=== PATIENT | male | born 2000 | race Caucasian/White ===

== ENCOUNTER 2019-02-12 14:00 | Emergency (ER) | payer SELFPAY ==
[~2019-02-12] VITALS: Ht 188 cm; Wt 65.8 kg
[~2019-02-12 14:00] MED LIST: ACET-789 PO
[2019-02-12] MEDS ORDERED: CYCLOBENZAPRINE 10 MG (FLEXERIL) TAB PO STA (14:44)
[2019-02-12] MEDS ORDERED: ACETAMINOPHEN 325 MG TABLET PO STA (14:44)
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
--- NOTE | 2019-02-12 15:16 | Diagnostic Imaging Report ---
PROCEDURE: CT head without contrast. TECHNIQUE: Multiple contiguous axial images were obtained through the brain without the use of intravenous contrast. Auto Exposure Controls were utilized during the CT exam to meet ALARA standards for radiation dose reduction. INDICATION: Headache for one week. COMPARISON: No prior studies are available for comparison. FINDINGS: Ventricles and sulci are within normal limits. No sulcal effacement or midline shift is seen. No acute intra-axial or extra-axial hemorrhage is detected. Cisterns are patent. Visualized paranasal sinuses are clear. IMPRESSION: Unremarkable noncontrast CT of the brain. Dictated by: Dictated on workstation # [id number]
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
[2019-02-12] MEDS ORDERED: CYCL10TA9 PO (15:23)
[2019-02-12] MEDS ORDERED: MECLIZINE 25 MG (ANTIVERT) TAB PO ONE (15:30)
[2019-02-12 15:38] VITALS: BP 132/92
--- OUTSIDE RECORDS SUMMARY | 2019-02-12 16:44 | XMS REPORT ---
Author CORNELIO Westbrook Organization [employer] Address Unknown Phone Unavailable Care Team Providers Care Aviation Project Manager Name Role Phone CORNELIO OCHOA CP Unavailable Allergies, Adverse Reactions, Alerts Substance Reaction Event Type N.K.D.A. Info Not Available Non Drug Allergy Problems Problem Type Condition Code Onset Dates Condition Status Problem Abdominal pain, epigastric 789.06 Active Problem Acute upper respiratory infections of unspecified site 465.9 Active Problem Abscess of penis N48.21 Active Assessment Abscess of penis N48.21 Active Problem Nausea with vomiting 787.01 Active Problem Streptococcal sore throat 034.0 Active Medications Medication Code System Code Instructions Start Date End Date Status Dosage Bactrim DS [facility] [address]-63 800-160 MG Orally Twice a day Jun 08, 2016 Jun 18, 2016 1 tablet Procedures Procedure Coding System Code Date LAB [facility]4 NOBLL Jun 08, 2016 Office Visit, Est Pt., Level 3 CPT-4 70538 Jun 08, 2016 Vital Signs Date/Time: Jun 08, 2016 Cardiac Monitoring Heart Rate 92 bpm Weight 142.4 lbs Height 71 in Ht Percentile 73.42 % BMI 19.86 Index Blood Pressure Diastolic 68 mmHg Blood Pressure Systolic 140 mmHg BMIPercentile 24.58 % Wt Percentile 43.88 % Results Name Result Date Reference Range Unit Abnormality Flag CULTURE, AEROBIC ----Aerobic Bacterial Culture Final report [id number] ----Result 1 Mixed skin anatoliy [id number] Summary Purpose [employer] Submission
--- OUTSIDE RECORDS SUMMARY | 2019-02-12 16:44 | XMS REPORT ---
Author Author Migration, Doctor Organization [facility] Address Unknown Phone Unavailable Care Team Providers Care Offal Separator Name Role Phone Migration, Doctor Unavailable Unavailable PROBLEMS Type Condition ICD9-CM Code [id number] Code Onset Dates Condition Status SNOMED Code Problem Streptococcal sore throat 034.0 Active 04049018 Problem Abscess of penis N48.21 Active 17829510 Problem Abdominal pain, epigastric 789.06 Active 04885740 Problem Nausea with vomiting 787.01 Active 55210878 Problem Acute upper respiratory infections of unspecified site 465.9 Active 54251981 ALLERGIES No Information ENCOUNTERS Encounter Location Date Diagnosis [facility] [address] [place] [address] Jun, Abscess of penis N48.21 [facility] [address] [place] [address] Nov, [facility] [address] [place] [address] Nov, [facility] [address] [place] [address] Sep, [facility] [id number] [address] Sep, [facility] [address] [place] [address] Nov, [facility] [address] [place] [address] Nov, [facility] [address] [place] [address] Jun, [facility] [address], [place] [address] Jun, [facility] [address] [place] [address] Nov, [facility] [address], [place] [address] Aug, [facility] [address] [place] [address] Jun, [facility] [address] [place] [address] Jun, [facility] [address] [place] [address] Mar, [facility] [address] [place] [address] Feb, [facility] [id number], [place] [address] Aug, IMMUNIZATIONS No Known Immunizations SOCIAL HISTORY Never Assessed REASON FOR VISIT EMR-[facility] PLAN OF CARE VITAL SIGNS MEDICATIONS No Known Medications RESULTS No Results PROCEDURES No Known procedures INSTRUCTIONS MEDICATIONS ADMINISTERED No Known Medications
--- OUTSIDE RECORDS SUMMARY | 2019-02-12 16:44 | XMS REPORT ---
Author Author Migration, Doctor Organization [facility] Address Unknown Phone Unavailable Care Team Providers Care Assembly Press Operator Name Role Phone Migration, Doctor Unavailable Unavailable PROBLEMS Type Condition ICD9-CM Code CTO18-IM Code Onset Dates Condition Status SNOMED Code Problem Streptococcal sore throat 034.0 Active 55281084 Problem Abscess of penis N48.21 Active 14549372 Problem Abdominal pain, epigastric 789.06 Active 87266449 Problem Nausea with vomiting 787.01 Active 09750961 Problem Acute upper respiratory infections of unspecified site 465.9 Active 26292165 ALLERGIES No Information ENCOUNTERS Encounter Location Date Diagnosis [facility] [address], [place] [address] Jun, Abscess of penis N48.21 [facility] [address], [place] [address] Nov, [facility] [address], [place] [address] Nov, [facility] [address] [place] [address] Sep, [facility] [id number], [place] [address] Sep, [facility] [address], [place] [address] Nov, [facility] [address], [place] [address] Nov, [facility] [address] [place] [address] Jun, [facility] [address], [place] [address] Jun, [facility] [address], [place] [address] Nov, [facility] [address], [place] [address] Aug, [facility] [address], [place] [address] Jun, [facility] [address], [place] [address] Jun, [facility] [address], [place] [address] Mar, [facility] [address], [place] [address] Feb, [facility] [id number], [place] [address] Aug, IMMUNIZATIONS No Known Immunizations SOCIAL HISTORY Never Assessed REASON FOR VISIT EMR-[facility] PLAN OF CARE VITAL SIGNS MEDICATIONS Medication Instructions Dosage Frequency Start Date End Date Duration Status Keflex 500 mg 2 capsule by Oral route 2 times per day for 10 days Nov, Active RESULTS No Results PROCEDURES No Known procedures INSTRUCTIONS MEDICATIONS ADMINISTERED No Known Medications
--- OUTSIDE RECORDS SUMMARY | 2019-02-12 16:44 | XMS REPORT ---
Author Author Migration, Doctor Organization [facility] Address Unknown Phone Unavailable Care Team Providers Care Back Tender Pulp Drier Name Role Phone Migration, Doctor Unavailable Unavailable PROBLEMS Type Condition ICD9-CM Code IEC16-QO Code Onset Dates Condition Status SNOMED Code Problem Streptococcal sore throat 034.0 Active 95492907 Problem Abscess of penis N48.21 Active 58301074 Problem Abdominal pain, epigastric 789.06 Active 73740630 Problem Nausea with vomiting 787.01 Active 13188967 Problem Acute upper respiratory infections of unspecified site 465.9 Active 32316026 ALLERGIES No Information ENCOUNTERS Encounter Location Date Diagnosis [facility] [address], [place] [address] Jun, Abscess of penis N48.21 [facility] [address], [place] [address] Nov, [facility] [address], [place] [address] Nov, [facility] [address] [place] [address] Sep, [facility] [id number], [place] [address] Sep, [facility] [address], [place] [address] Nov, [facility] [address], [place] [address] Nov, [facility] [address] [place] [address] Jun, [facility] [address], [place] [address] Jun, [facility] [address] [place] [address] Nov, [facility] [address], [place] [address] Aug, [facility] [address], [place] [address] Jun, [facility] [address], [place] [address] Jun, [facility] [address], [place] [address] Mar, [facility] [address], [place] [address] Feb, [facility] [id number], [place] [address] Aug, IMMUNIZATIONS No Known Immunizations SOCIAL HISTORY Never Assessed REASON FOR VISIT [facility]-[facility] [place] PLAN OF CARE VITAL SIGNS MEDICATIONS No Known Medications RESULTS No Results PROCEDURES No Known procedures INSTRUCTIONS MEDICATIONS ADMINISTERED No Known Medications
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
== END 2019-02-12 15:38 | disposition home or self-care (01) ==
LOC: EDUNIT# 14:00 → ER 14:01
DX: S09.90XA Unspecified injury of head, initial encounter (principal); S39.012A Strain of muscle, fascia and tendon of lower back, initial encounter; F17.210 Nicotine dependence, cigarettes, uncomplicated; Y04.0XXA Assault by unarmed brawl or fight, initial encounter; Y92.009 Unspecified place in unspecified non-institutional (private) residence as the place of occurrence of the external cause
CPT/HCPCS: 70450; 72100